=== PATIENT | male | born 1960 | race Caucasian/White ===

== ENCOUNTER → 2021-05-05 | Outpatient (CLI) | payer OTHER ==
--- NOTE | 2021-05-06 08:06 | RAD ---
EXAM: Cervical spine, 4 views. HISTORY: Pain. COMPARISON: None. FINDINGS: 4 views of the cervical spine are obtained. There is degenerative endplate remodeling with disc space narrowing and spurring predominantly at C5-C6 and C6-C7. There is multilevel facet arthrop athy. There is no fracture or listhesis. IMPRESSION: Multilevel degenerative change, primarily at C5-C7. Electronically signed by: Sofia Montano MD (05/06/2021 8:04 AM) [id number]
== END ==
LOC: RAD 16:39
PROVIDERS: ATTEND Psychiatry & Neurology Neurology
DX: M47.812 Spondylosis without myelopathy or radiculopathy, cervical region (principal); M48.8X2 Other specified spondylopathies, cervical region; M48.02 Spinal stenosis, cervical region
CPT/HCPCS: 72040